=== PATIENT | female | born 1955 | race Caucasian/White ===

== ENCOUNTER 2016-07-24 15:24 | Emergency (ER) | payer BC ==
[~2016-07-24] VITALS: Ht 162.6 cm; Wt 56.6 kg
[~2016-07-24 15:24] MED LIST: ASPI81CH CHEW; BACT800T5 PO; ESTR1TAB PO
[2016-07-24 15:29] VITALS: BP 132/69; PULSE 81; RESP 14; TEMP 97.7; O2SAT 99
[2016-07-24 15:52] LABS: BLOOD, URINE MOD (NEG); GLUCOSE,URINE NEG (NEG); KETONE, URINE NEG (NEG); NITRITE,URINE NEG (NEG); PH, URINE 5.5 (5.0-8.5)
--- NOTE | 2016-07-24 15:53 | PD ---
HPI Chief Complaint: Abdominal Pain Time Seen by Provider: 15:38 Travel History International Travel<30 days: No Contact w/Intl Traveler<30days: No Traveled to known affect area: No History of Present Illness HPI 60-year-old female here with complaint of abdominal pain. Patient has had 2 days of low abdominal pain, small volume urinary frequency. Slight dysuria but no hematuria. No nausea, vomiting, flank pain. She denies any bowel symptoms. Pain is mild, constant. No fevers or chills. PFSH Past Medical History Hx Anticoagulant Therapy: Yes (ASA) Arthritis: Yes Cancer: No Cardiac Catheterization: No Cardiovascular Problems: Yes (BRAIN ANRYISYM) High Cholesterol: Yes Congestive Heart Failure: No Cerebrovascular Accident: Yes Diabetes: No Diminished Hearing: No Endocrine: No Gastrointestinal Disorders: Yes (chronic diarrhea, irritable bowel syndrome) Genitourinary: No Headaches: No Heparin Induced Thrombocytopen: No Hypertension: No Immune Disorder: No Implanted Vascular Access Dvce: Yes Musculoskeletal: Yes (DDD) Neurologic: Yes Psychiatric: No Reproductive: No Respiratory: Yes (hoarse voice) Integumentary: Yes Immunizations Current: No Migraines: Yes Seizures: No Tetanus Vaccination: < 5 Years Influenza Vaccination: No Past Surgical History Abdominal Surgery: Yes (cholecystectomy) AICD: No Arteriovenous Shunt: No Body Medical Devices: breast implants Section: Yes Cholecystectomy: Yes Coronary Artery Bypass Graft: No Eye Surgery: Yes (bilateral eyes "muscles cut because seeing double") Gynecologic Surgery: Yes (total hysterectomy, 2 C-sections) Hysterectomy: Yes Insulin Pump: No Joint Replacement: No Pacemaker: No Other Surgery: Yes Social History Alcohol Use: Yes (RARE) Tobacco Use: Yes (1/2 PPD) Substance Use: No Allergies-Medications (Allergen,Severity, Reaction): Coded Allergies: Darvocet-N 100 (Verified Allergy, Severe, N/V, 07/24/16) Demerol (Verified Allergy, Severe, N/V, 07/24/16) Flagyl (Verified Allergy, Severe, HIVES AND ITCHING, 07/24/16) Percocet (Verified Allergy, Severe, N/V, 07/24/16) Morphine (Verified Allergy, Intermediate, Nausea/Vomiting, 07/24/16) Prednisone (Verified Adverse Reaction, Intermediate, Nausea/Vomiting, 07/24) Uncoded Allergies: STEROIDS (Allergy, Unknown, Nausea/Vomiting, 07/21/13) Reported Meds & Prescriptions Reported Meds & Active Scripts Active Reported Estradiol 1 Mg Tab 1 Mg PO DAILY Aspirin 81 Mg Chew 81 Mg CHEW DAILY Review of Systems Except as stated in HPI: all other systems reviewed are Neg Physical Exam Narrative GENERAL: Well-appearing female in no acute distress SKIN: Focused skin assessment warm/dry. HEAD: Normocephalic. EYES: No scleral icterus. No injection or drainage. ENT: Mucous membranes pink and moist. Hoarse voice chronic per patient NECK: Supple CARDIOVASCULAR: Regular rate and rhythm. RESPIRATORY: No accessory muscle use. GASTROINTESTINAL: Abdomen soft, non-tender, nondistended. Hepatic and splenic margins not palpable. No CVA tenderness. MUSCULOSKELETAL: Normal gait NEUROLOGICAL: Awake and alert. Normal speech. PSYCHIATRIC: Appropriate mood and affect; insight and judgment normal. Data Data Last Documented VS Vital Signs Date Time Temp Pulse Resp B/P Pulse Ox O2 Delivery O2 Flow Rate FiO2 07/24/16 15:29 97.7 81 14 132/69 99 Orders Urinalysis - C+S If Indicated (07/24/16 15:40) Urine Culture (07/24/16 15:50) Labs Laboratory Tests Test 07/24/16 15:50 Urine Collection Type CLEAN CATCH Urine Color YELLOW Urine Turbidity MOD Urine pH 5.5 Urine Specific Bessie 1.018 Urine Protein 30 mg/dL Urine Glucose (UA) NEG mg/dL Urine Ketones NEG mg/dL Urine Occult Blood MOD Urine Nitrite NEG Urine Bilirubin NEG Urine Leukocyte Esterase MOD Urine RBC 15-19 /hpf Urine WBC 50-99 /hpf Urine WBC Clumps FEW Urine Squamous Epithelial 0-5 /hpf Cells Urine Transitional Epithelial 0-5 /hpf Cells Urine Amorphous Sediment FEW Urine Bacteria FEW /hpf Microscopic Urinalysis Comment CULTURE INDICATED Urine Collection Time 1550 MDM Medical Decision Making Medical Screen Exam Complete: Yes Emergency Medical Condition: Yes Medical Record Reviewed: Yes Differential Diagnosis 60-year-old female with 2 days of suprapubic pain with urinary symptoms. Differential includes cystitis, ureterolithiasis, diverticulitis, and less likely pyelonephritis or peritoneal pathology given her overall benign abdominal exam. Narrative Course Urinalysis showed white cells, red cells, leukocyte esterase and bacteria. We' ll treat with Macrobid for home. Diagnosis Primary Impression: Cystitis Referrals: Primary Care Physician call for appointment Additional Instructions: Antibiotics as prescribed. Follow-up with primary care provider symptoms persist. Med/Other Pt SpecificInfo: Prescription(s) given Scripts Nitrofurantoin Monohydrate Macrocrystals (Macrobid)100 Mg Eih252 Mg PO BID 7 Days Ref 0 Prov:Willa Gonzalez MD 07/24/16 Disposition: 01 DISCHARGE HOME Condition: Stable Willa Gonzalez MD July 24, 2016 15:53
[2016-07-24 15:58] LABS: METHOD OF COLLECTION CLEAN CATCH; URINE COLOR YELLOW (YELLW/STRAW)
[2016-07-24 15:59] LABS: RBC, URINE 15-19 /hpf (0-3)
[2016-07-24 16:00] LABS: BACTERIA, URINE FEW /hpf; COMMENT (UR) CULTURE INDICATED; COMMENT2 (UR) MUCOUS PRESENT; CULTURE IF INDICATED CULTURE INDICATED; SQUAMOUS EPITHELIAL CELL URINE 0-5 /hpf (0-5); TRANSITIONAL EPI CELLS, URINE 0-5 /hpf
[2016-07-24] MEDS ORDERED: MACR100C2 PO (16:02)
== END 2016-07-24 16:10 | disposition home or self-care (01) ==
LOC: PHED 15:24
DX: N30.90 Cystitis, unspecified without hematuria (principal); E78.00 Pure hypercholesterolemia, unspecified; F17.210 Nicotine dependence, cigarettes, uncomplicated; K58.9 Irritable bowel syndrome, unspecified; Z79.82 Long term (current) use of aspirin; B95.62 Methicillin resistant Staphylococcus aureus infection as the cause of diseases classified elsewhere
CPT/HCPCS: 81001; 86403; 87077; 87086; 87186; 99284

== ENCOUNTER 2017-03-02 12:03 | Emergency (ER) | payer BC ==
[~2017-03-02] VITALS: Ht 163.8 cm; Wt 56.0 kg
[~2017-03-02 12:03] MED LIST changes: +ASPI-516 CHEW; -ASPI81CH CHEW; -BACT800T5 PO; +MACR100C2 PO
[2017-03-02 12:09] VITALS: BP 149/63; PULSE 86; RESP 17; TEMP 97.7; O2SAT 97
[2017-03-02] MEDS ORDERED: MAGICADU2 SWISH-SWAL (13:11)
--- NOTE | 2017-03-02 13:11 | PD ---
HPI Chief Complaint: Oral / Dental Pain or Problem Time Seen by Provider: 13:12 Travel History International Travel<30 days: No Contact w/Intl Traveler<30days: No Traveled to known affect area: No History of Present Illness HPI 61-year-old female here with painful lesion in her mouth for the last several days. She denies fever or chills. She reports she had a upper respiratory infection 1 week prior. No difficulty swallowing. Symptom severity is moderate. Pain is aggravated by hot and cold liquids. No alleviating factors. PFSH Past Medical History Hx Anticoagulant Therapy: Yes (ASA) Arthritis: Yes Cancer: No Cardiac Catheterization: No Cardiovascular Problems: Yes (BRAIN ANRYISYM) High Cholesterol: Yes Congestive Heart Failure: No Cerebrovascular Accident: Yes Diabetes: No Diminished Hearing: No Endocrine: No Gastrointestinal Disorders: Yes (chronic diarrhea, irritable bowel syndrome) Genitourinary: No Headaches: No Heparin Induced Thrombocytopen: No Hypertension: No Immune Disorder: No Implanted Vascular Access Dvce: Yes Musculoskeletal: Yes (DDD) Neurologic: Yes Psychiatric: No Reproductive: No Respiratory: Yes (hoarse voice) Integumentary: Yes Immunizations Current: No Migraines: Yes Seizures: No Tetanus Vaccination: < 5 Years Influenza Vaccination: No Past Surgical History Abdominal Surgery: Yes (cholecystectomy) AICD: No Arteriovenous Shunt: No Body Medical Devices: breast implants Section: Yes Cholecystectomy: Yes Coronary Artery Bypass Graft: No Eye Surgery: Yes (bilateral eyes "muscles cut because seeing double") Gynecologic Surgery: Yes (total hysterectomy, 2 C-sections) Hysterectomy: Yes Insulin Pump: No Joint Replacement: No Pacemaker: No Other Surgery: Yes Social History Alcohol Use: Yes (RARE) Tobacco Use: Yes (1/2 PPD) Substance Use: No Allergies-Medications (Allergen,Severity, Reaction): Coded Allergies: acetaminophen (Unverified Allergy, Severe, N/V, 03/02/17) meperidine (Unverified Allergy, Severe, N/V, 03/02/17) metronidazole (Unverified Allergy, Severe, HIVES AND ITCHING, 03/02/17) oxycodone (Unverified Allergy, Severe, N/V, 03/02/17) propoxyphene (Unverified Allergy, Severe, N/V, 03/02/17) morphine (Unverified Allergy, Intermediate, Nausea/Vomiting, 03/02/17) prednisone (Unverified Adverse Reaction, Intermediate, Nausea/Vomiting, ) Uncoded Allergies: STEROIDS (Allergy, Unknown, Nausea/Vomiting, 07/21/13) Reported Meds & Prescriptions Reported Meds & Active Scripts Active Magic Mouthwash Adult Liq (Multi-Ingredient Mouthwash/Gargle) 120 Ml Susp 10 Ml SWISH-SWAL ACHS Each 5mL contains: Nystatin 200,000units, Diphenhydramine 4.25mg, Viscous Lidocaine 10mg, Mar syrup 0.8 mL Reported Estradiol 1 Mg Tab 1 Mg PO DAILY Review of Systems Except as stated in HPI: all other systems reviewed are Neg Physical Exam Narrative GENERAL: Alert female. Well-appearing. SKIN: Warm and dry. HEAD: Normocephalic. EYES: No injection or drainage. MOUTH: Single oral ulcer to the right lateral tongue measuring less than 0.5 cm. NECK: Supple, trachea midline. No JVD or lymphadenopathy or mass. CARDIOVASCULAR: Regular rate and rhythm without murmurs, gallops, or rubs. RESPIRATORY: Breath sounds equal bilaterally. No accessory muscle use. Data Data Last Documented VS Vital Signs Date Time Temp Pulse Resp B/P (MAP) Pulse Ox O2 Delivery O2 Flow Rate FiO2 03/02/17 12:09 97.7 86 17 149/63 (91) 97 Orders Orders Ed Discharge Order (03/02/17 13:11) MDM Medical Decision Making Medical Screen Exam Complete: Yes Emergency Medical Condition: Yes Differential Diagnosis aphthous ulcer, oral infection Narrative Course 61-year-old female with his oral ulcer. Vital signs are stable. Patient is well-appearing. She was instructed to follow up with her dentist for recheck. Diagnosis Primary Impression: Aphthous ulcer of tongue Referrals: Dentist Scripts [id number]-Veaerjhkt Liq (Magic Mouthwash Adult Liq) 120 Ml Susp 10 ML SWISH-SWAL ACHS for Mouth sores, #120 ML 0 Refills Each 5mL contains: Nystatin 200,000units, Diphenhydramine 4.25mg, Viscous Lidocaine 10mg, Mar syrup 0.8 mL Prov: Rosalind Fortune 03/02/17 Disposition: 01 DISCHARGE HOME Condition: Stable Rosalind Fortune Mar 02, 2017 13:11
== END 2017-03-02 13:29 | disposition home or self-care (01) ==
LOC: PHEFT 12:03
DX: K12.0 Recurrent oral aphthae (principal); E78.00 Pure hypercholesterolemia, unspecified; Z86.73 Personal history of transient ischemic attack (TIA), and cerebral infarction without residual deficits; K58.9 Irritable bowel syndrome, unspecified; F17.200 Nicotine dependence, unspecified, uncomplicated
CPT/HCPCS: 99283